=== PATIENT | female | born 1970 | race Caucasian/White ===

== ENCOUNTER 2023-08-05 12:02 | Outpatient (RCR) | payer OTHER, SELFPAY | END 2023-08-05 23:59 | disposition home or self-care (01) | LOC: RPT 12:02 | PROVIDERS: ATTENDING PHYSICIAN Neurological Surgery; PRIMARYCARE PHYSICIAN Internal Medicine | DX: M48.02 Spinal stenosis, cervical region (principal); Z73.6 Limitation of activities due to disability | CPT/HCPCS: 97010; 97110; 97112; 97140; 97162 ==

== ENCOUNTER 2023-09-03 13:19 | Outpatient (RCR) | payer OTHER, SELFPAY | END 2023-09-03 23:59 | disposition home or self-care (01) | LOC: RPT 13:19 | PROVIDERS: ATTENDING PHYSICIAN Neurological Surgery; PRIMARYCARE PHYSICIAN Internal Medicine | DX: M48.02 Spinal stenosis, cervical region (principal); Z73.6 Limitation of activities due to disability; R26.89 Other abnormalities of gait and mobility; R26.2 Difficulty in walking, not elsewhere classified; M62.81 Muscle weakness (generalized) | CPT/HCPCS: 97110; 97112; 97530 ==

== ENCOUNTER → 2023-09-26 14:15 | Outpatient (REF) | payer OTHER, SELFPAY | LOC: WDC 14:15 | PROVIDERS: ATTENDING PHYSICIAN Nurse Practitioner Family; FAMILY PHYSICIAN Internal Medicine | DX: R92.8 Other abnormal and inconclusive findings on diagnostic imaging of breast (principal) | CPT/HCPCS: 76642 ==

== ENCOUNTER 2023-10-02 13:00 | Outpatient (RCR) | payer OTHER, SELFPAY | END 2023-10-02 23:59 | disposition home or self-care (01) | LOC: RPT 13:00 | PROVIDERS: ATTENDING PHYSICIAN Neurological Surgery; PRIMARYCARE PHYSICIAN Internal Medicine | DX: M48.02 Spinal stenosis, cervical region (principal); Z73.6 Limitation of activities due to disability; R26.2 Difficulty in walking, not elsewhere classified; M62.81 Muscle weakness (generalized); R26.89 Other abnormalities of gait and mobility | CPT/HCPCS: 97110; 97112; 97140 ==

== ENCOUNTER → 2023-10-09 12:14 | Outpatient (REF) | payer OTHER, SELFPAY | LOC: RAD 12:14 | PROVIDERS: ATTENDING PHYSICIAN Student in an Organized Health Care Education/Training Program; FAMILY PHYSICIAN Internal Medicine | DX: R26.9 Unspecified abnormalities of gait and mobility (principal) | CPT/HCPCS: 72110 ==

== ENCOUNTER 2023-10-24 15:23 | Outpatient (RCR) | payer OTHER, SELFPAY | END 2023-10-24 23:59 | disposition home or self-care (01) | LOC: RPT 15:23 | PROVIDERS: ATTENDING PHYSICIAN Neurological Surgery; PRIMARYCARE PHYSICIAN Internal Medicine | DX: M48.02 Spinal stenosis, cervical region (principal); R26.89 Other abnormalities of gait and mobility; Z73.6 Limitation of activities due to disability | CPT/HCPCS: 97110; 97112; 97140; 97530 ==

== ENCOUNTER 2023-12-25 16:05 | Outpatient (RCR) | payer OTHER, SELFPAY | END 2023-12-25 23:59 | disposition home or self-care (01) | LOC: RPT 16:05 | PROVIDERS: ATTENDING PHYSICIAN Neurological Surgery; PRIMARYCARE PHYSICIAN Internal Medicine | DX: M48.02 Spinal stenosis, cervical region (principal); Z73.6 Limitation of activities due to disability; R26.89 Other abnormalities of gait and mobility | CPT/HCPCS: 97110; 97112; 97530 ==

== ENCOUNTER 2024-02-05 13:09 | Outpatient (RCR) | payer OTHER, SELFPAY | END 2024-02-05 23:59 | disposition home or self-care (01) | LOC: RPT 13:09 | PROVIDERS: ATTENDING PHYSICIAN Neurological Surgery; PRIMARYCARE PHYSICIAN Internal Medicine | DX: M48.02 Spinal stenosis, cervical region (principal); R26.89 Other abnormalities of gait and mobility; Z73.6 Limitation of activities due to disability | CPT/HCPCS: 97110; 97112; 97140 ==

== ENCOUNTER → 2024-02-10 15:49 | Outpatient (REF) | payer OTHER, SELFPAY | LOC: RAD 15:49 | PROVIDERS: ATTENDING PHYSICIAN Nurse Practitioner; FAMILY PHYSICIAN Internal Medicine | DX: M48.02 Spinal stenosis, cervical region (principal) | CPT/HCPCS: 72050 ==

== ENCOUNTER 2024-02-20 14:02 | Outpatient (RCR) | payer OTHER, SELFPAY | END 2024-02-20 23:59 | disposition home or self-care (01) | LOC: RPT 14:02 | PROVIDERS: ATTENDING PHYSICIAN Neurological Surgery; PRIMARYCARE PHYSICIAN Internal Medicine | DX: M48.02 Spinal stenosis, cervical region (principal); Z73.6 Limitation of activities due to disability; R26.89 Other abnormalities of gait and mobility; M62.81 Muscle weakness (generalized); R26.2 Difficulty in walking, not elsewhere classified | CPT/HCPCS: 97110; 97112; 97140 ==

== ENCOUNTER → 2024-03-17 13:30 | Outpatient (REF) | payer OTHER, SELFPAY | LOC: WDC 13:30 | PROVIDERS: ATTENDING PHYSICIAN Obstetrics & Gynecology; FAMILY PHYSICIAN Internal Medicine | DX: Z12.31 Encounter for screening mammogram for malignant neoplasm of breast (principal); R92.8 Other abnormal and inconclusive findings on diagnostic imaging of breast | CPT/HCPCS: 76642; 77063; 77067 ==

== ENCOUNTER → 2024-07-02 13:08 | Outpatient (REF) | payer OTHER, SELFPAY | LOC: WDC 13:08 | PROVIDERS: ATTENDING PHYSICIAN Nurse Practitioner Family; FAMILY PHYSICIAN Internal Medicine | DX: R92.2 Inconclusive mammogram (principal) | CPT/HCPCS: 76641 ==

== ENCOUNTER → 2024-07-08 09:39 | Outpatient (REF) | payer OTHER, SELFPAY | LOC: HWRAD 09:39 | PROVIDERS: ATTENDING PHYSICIAN Obstetrics & Gynecology; FAMILY PHYSICIAN Internal Medicine | DX: R10.2 Pelvic and perineal pain (principal) | CPT/HCPCS: 76830; 76856 ==

== ENCOUNTER 2024-08-11 06:18 | Day surgery (SDC) | payer OTHER, SELFPAY | END 2024-08-11 11:43 | disposition home or self-care (01) | LOC: GI 06:18 | PROVIDERS: ATTENDING PHYSICIAN Internal Medicine Gastroenterology | DX: Z12.11 Encounter for screening for malignant neoplasm of colon (principal); K57.30 Diverticulosis of large intestine without perforation or abscess without bleeding; K64.8 Other hemorrhoids | CPT/HCPCS: G0121 ==